=== PATIENT | female | born 1995 | race Two or more races ===

== ENCOUNTER 2017-10-31 08:58 | Day surgery (SDC) | payer BC ==
[~2017-10-31 08:58] MED LIST: Lactated Ringers 1,000 ML IV SCH; Lidocaine 1%/Sod Bicarbonate in NS 8.4% 1 ML Syringe IDERM PRN; Sodium Chloride 0.9% 10 ML Syringe FLUSH PRN
--- NOTE | 2017-10-31 09:25 | PCM.PREANE ---
Preanesthetic Assessment - Procedure Proposed Procedure: D&C - Anesthesia/Transfusion/Family Hx Anesthesia History: No Prior Anesthesia Family History of Anesthesia Reaction: No Transfusion History: No Prior Transfusion(s) - Review of Systems General: No Symptoms Pulmonary: No Symptoms Cardiovascular: No Symptoms Gastrointestinal: No Symptoms Neurological: No Symptoms Other: Reports: None - Physical Assessment NPO Status Date: 10/30/17 NPO Status Time: 00:00 Pulse: 94 O2 Sat by Pulse Oximetry: 96 Respiratory Rate: 16 Blood Pressure: 117/67 Temperature: 36.7 C Height: 1.52 m Weight: 71 kg ASA Class: 2 Mental Status: Alert & Oriented x3 Airway Class: Mallampati = 1 Dentition: Reports: Normal Dentition Thyro-Mental Finger Breadths: 3 Mouth Opening Finger Breadths: 3 ROM/Head Extension: Full Lungs: Clear to Auscultation, Normal Respiratory Effort Cardiovascular: Regular Rate, Regular Rhythm, No Murmurs - Allergies Allergies/Adverse Reactions: Allergies Allergy/AdvReac Type Severity Reaction Status Date / Time No Known Allergies Allergy Verified 10/30/17 14:07 - Blood Blood Available: Yes Product(s) Available: PRBC - Anesthesia Plan Pre-Op Medication Ordered: None - Acknowledgements Anesthesia Type Planned: General Anesthesia Pt an Appropriate Candidate for the Planned Anesthesia: Yes Alternatives and Risks of Anesthesia Discussed w Pt/Guardian: Yes Pt/Guardian Understands and Agrees with Anesthesia Plan: Yes PreAnesthesia Questionnaire HEENT History: Reports: Impaired Vision, Other (See Below) Other HEENT History: wears glasses Cardiovascular History: Reports: None Respiratory History: Reports: None Gastrointestinal History: Reports: None Genitourinary History: Reports: None CLINICAL QUALITY MANAGER History: Reports: , Other (See Below) Other OB/BYN History: pelivc pain, irregular menses Musculoskeletal History: Reports: None Neurological History: Reports: None Psychiatric History: Reports: None Endocrine/Metabolic History: Reports: None Hematologic History: Reports: None Immunologic History: Reports: None Oncologic (Cancer) History: Reports: None Dermatologic History: Reports: None - Past Surgical History Head Surgeries/Procedures: Reports: None Cardiovascular Surgical History: Reports: None Respiratory Surgical History: Reports: None GI Surgical History: Reports: None Female Surgical History: Reports: None Male Surgical History: Reports: None Endocrine Surgical History: Reports: None Neurological Surgical History: Reports: None Musculoskeletal Surgical History: Reports: None Oncologic Surgical History: Reports: None Dermatological Surgical History: Reports: None - SUBSTANCE USE Smoking Status *Q: Never Smoker Tobacco Use Within Last Twelve Months: No Second Hand Smoke Exposure: No Days Per Week of Alcohol Use: 0 Number of Drinks Per Day: 0 Total Drinks Per Week: 0 Recreational Drug Use History: No - HOME MEDS Home Medications: Home Meds Vits #93/Iron Fum/FA [ Formula Tablet] 1 tab PO DAILY 10/30/17 [History] Promethazine HCl [Promethazine HCl] 1 - 2 tab PO Q6H PRN 10/30/17 [History] - CURRENT (IN HOUSE) MEDS Current Meds: Current Medications Doxycycline Hyclate (Vibramycin) 100 mg PO ONETIME ONE Stop: 10/31/17 07:59 Lactated Ringer's (Ringers, Lactated) 1,000 mls @ 125 mls/hr IV ASDIRECTED THEO Stop: 10/31/17 23:00 Lidocaine/Sodium Bicarbonate (Buffered Lidocaine 1% In Ns 8.4%) 0.25 ml IDERM ONETIME PRN PRN Reason: Prior to IV Start Stop: 10/31/17 18:00 Sodium Chloride (Saline Flush) 10 ml FLUSH ASDIRECTED PRN PRN Reason: Keep Vein Open Stop: 10/31/17 18:00
[2017-10-31] MEDS ORDERED: Ondansetron 4 MG/2 ML SDV ONE (09:41)
[2017-10-31] MEDS ORDERED: fentaNYL 250 MCG/5 ML SDV ONE (09:41)
[2017-10-31] MEDS ORDERED: Propofol 200 MG/20 ML SDV ONE (09:41)
[2017-10-31] MEDS ORDERED: Midazolam 1 MG/ML 2 ML SDV ONE (09:41)
[2017-10-31] MEDS ORDERED: Lidocaine 1% 4 ML ONE (09:42)
[2017-10-31] MEDS ORDERED: Ketorolac 30 MG/ML SDV ONE (09:47)
[2017-10-31] MEDS ORDERED: Doxycycline 100 MG Cap PO ONE ×2 (10:00→12:25)
[2017-10-31] MEDS ORDERED: Methylergonovine 0.2 MG/1 ML Amp ONE (10:05)
[2017-10-31] MEDS ORDERED: Lactated Ringers 1,000 ML ONE (10:36)
[2017-10-31] MEDS ORDERED: fentaNYL 100 MCG/2 ML SDV IVPUSH PRN (10:50)
--- NOTE | 2017-10-31 10:53 | PCM.POSTAN ---
POST ANESTHESIA ASSESSMENT - MENTAL STATUS Mental Status: Somnolent - VITAL SIGNS Pulse Rate: 70 SaO2: 100 Resp Rate: 8 Blood Pressure: 109/56 Temperature: 36.8 C - RESPIRATORY Respiratory Status: Respiratory Rate WNL, Airway Patent, O2 Saturation Stable, Supplemental Oxygen - CARDIOVASCULAR CV Status: Pulse Rate WNL, Blood Pressure Stable - GASTROINTESTINAL GI Status: No Symptoms - PAIN Pain Score: 0 - POST OP HYDRATION Hydration Status: Adequate & Stable - OBSERVATIONS Free Text/Narrative:: no anesthesia complications noted
--- NOTE | 2017-10-31 11:06 | PCM.OPNOTE ---
- General Post-Op/Procedure Note Date of Surgery/Procedure: 10/31/17 Operative Procedure(s): Suction dilation and curettage Findings: Single intrauterine gestational sac without pole, overall unchanged from previous exam. No vaginal bleeding on initial exam. Pre Op Diagnosis: Missed at 10 weeks gestational age by LMP with gestational sac measuring 8 weeks Post-Op Diagnosis: Same Anesthesia Technique: General LMA Primary Surgeon: Rob Muñiz Anesthesia Provider: Sam Eaton Sales Agent Pest Control Service: Isai Ring ([place] student) Reason Sales Agent Pest Control Service Was Necessary: Use of ultrasound Role of Sales Agent Pest Control Service: Perform ultrasound during procedure Pathology: Products of conception Fluid Replacement, Intraop: 1,200 Output, Urine Amount: 0 (Voided prior to procedure) EBL in mLs: 225 Complications: None Condition: Good Free Text/Narrative:: Operative time: 9 minutes Procedure in Detail: Patient was counseled on risks, benefits and alternatives of the procedure and H &P and consents were reviewed prior to going back to the OR. She was given 100 mg of doxycycline for antibiotic prophylaxis. She was taken back to the OR and given general anesthesia with laryngeal mask airway that was placed without difficulty. She was placed in dorsal lithotomy position using Bernardo stirrups. She was prepped and draped in a normal sterile fashion. A sterile speculum was placed in the vagina and the cervix was visualized. The anterior lip of the cervix was grasped with an Allis clamp. The cervix was serially dilated to a # 20 Killian dilator. The vacuum was tested and reached an appropriate suction level. A 8 mm suction curettage was then placed into the uterine cavity and suction applied. The uterine cavity was suctioned circumferentially until a good cri was felt in all directions. The tissue that was removed was sent to pathology. The procedure was complete at this time and the tenaculum was removed from the cervix and good hemostasis was noted from the tenaculum sites. All instruments were removed from the vagina. All needle and sponge counts were correct x 2. The patient was awoken and taken back to the recovery room in stable condition. She was given an additional 200 mg of doxycycline PO. She will be discharged home with methergine for uterine tone. The patient will be discharged home when she is ambulating, tolerating PO, pain is well controlled with PO medications and she is voiding normally. She will follow up in the clinic within the next 2- 3 weeks. She was given strict precautions to return if she is having severe vaginal bleeding of more than 1 pad per hour for three hours, uncontrollable pain/nausea /vomiting or if she is having a fever greater than 100.4 Wayne Muñiz MD 10/31/2017 11:22 AM
[2017-10-31] MEDS ORDERED: Acetaminophen 325 MG Tab PO ONE (12:50)
== END 2017-10-31 13:10 | disposition home or self-care (01) ==
LOC: JD.SDS 08:58
PROVIDERS: ATTEND Obstetrics & Gynecology
DX: O02.1 Missed abortion (principal)
CPT/HCPCS: 36415; 59820; 85025; 86850; 86900; 86901; A9270; J1885; J2210; J2250; J2405; J3010; J7120; 00940; J2001; J2704

== ENCOUNTER 2018-04-08 11:04 | Emergency (ER) | payer BC ==
[2018-04-08] MEDS ORDERED: Sodium Chloride 0.9% 10 ML Syringe FLUSH PRN (11:29)
[2018-04-08] MEDS ORDERED: Dicyclomine 10 MG Cap PO ONE (11:31)
--- NOTE | 2018-04-08 11:34 | EDM.PDOC ---
ED HPI GENERAL MEDICAL PROBLEM - General Chief Complaint: Gastrointestinal Problem Stated Complaint: WITH SIDE PAIN Time Seen by Provider: 04/08/18 11:18 Source of Information: Reports: Patient, Family (spouse) History Limitations: Reports: No Limitations - History of Present Illness INITIAL COMMENTS - FREE TEXT/NARRATIVE: 22-year-old female presents to the ED with left upper quadrant or mid abdominal pain. Pain started suddenly yesterday. Since then it is been rather constant with an intermittent strong colicky component. Bowels are working normally. No problems passing her water. No fever or chills. She believes she is with home positive points he tests done 2. Last normal menstrual period around February 27. This would make her 5 weeks and 6 days by dates. 3 para 2 with the last ending in miscarriage at 3 months gestation in October of this year. No previous abdominal surgery. Pain radiates mildly into her back. Appetite has been good although she has not eaten yet today. Onset: Sudden Onset Date: 04/07/18 Onset Time: 10:30 Duration: Hour(s):, Colic, Constant, Other (Pains Are Very Sharp and Stabbing and Radiating across to the Right Abdomen.) Location: Reports: Abdomen (Left mid and lower quadrant of the abdomen.) Quality: Reports: Ache (Deep aching pain with occasional sharp stabbing pain that radiates across to the right abdomen.) Severity: Moderate (7 out of 10 when pain is intense.) Improves with: Reports: Rest Worsens with: Reports: Movement (Bending over seems to make it the worst.) Context: Denies: Activity, Exercise, Lifting, Sick Contact, Trauma, Other Associated Symptoms: Denies: No Other Symptoms, Confusion, Chest Pain, Cough, cough w sputum, Diaphoresis, Fever/Chills, Headaches, Loss of Appetite, Malaise , Nausea/Vomiting, Rash, Seizure, Shortness of Breath, Syncope, Weakness Treatments FERRYBOAT DECKHAND: Reports: Other (see below) (None.) Left Middle Abdomen Pain Score (Numeric/FACES): 8 - Related Data Allergies Allergy/AdvReac Type Severity Reaction Status Date / Time No Known Allergies Allergy Verified 10/30/17 14:07 Home Meds: Home Meds Vits #93/Iron Fum/FA [ Formula Tablet] 1 tab PO DAILY 10/30/17 [History] Acetaminophen [Tylenol] 650 mg PO Q6H PRN #60 tablet 10/31/17 [Rx] Past Medical History HEENT History: Reports: Impaired Vision, Other (See Below) Other HEENT History: wears glasses Cardiovascular History: Reports: None Respiratory History: Reports: None Gastrointestinal History: Reports: None Genitourinary History: Reports: None [facility] History: Reports: , Other (See Below) : 3 Para: 1 (Last ended in miscarriage at 12 weeks gestation. This was in October 2017) Other [facility] History: pelivc pain, irregular menses Musculoskeletal History: Reports: None Neurological History: Reports: None Psychiatric History: Reports: None Endocrine/Metabolic History: Reports: None Hematologic History: Reports: None Immunologic History: Reports: None Oncologic (Cancer) History: Reports: None Dermatologic History: Reports: None - Past Surgical History Head Surgeries/Procedures: Reports: None Cardiovascular Surgical History: Reports: None Respiratory Surgical History: Reports: None GI Surgical History: Reports: None Female Surgical History: Reports: None, D&C Endocrine Surgical History: Reports: None Neurological Surgical History: Reports: None Musculoskeletal Surgical History: Reports: None Oncologic Surgical History: Reports: None Dermatological Surgical History: Reports: None Social & Family History - Tobacco Use Smoking Status *Q: Never Smoker - Caffeine Use Caffeine Use: Reports: Soda - Recreational Drug Use Recreational Drug Use: No - Living Situation & Occupation Living situation: Reports: Occupation: Employed ED ROS GENERAL - Review of Systems Review Of Systems: See Below Constitutional: Reports: Fatigue (Mild). Denies: Fever HEENT: Reports: No Symptoms Respiratory: Reports: No Symptoms Cardiovascular: Reports: No Symptoms Endocrine: Reports: No Symptoms GI/Abdominal: Reports: Abdominal Pain (See history of present illness) : Reports: Other (Trying to achieve . Last period was February 27.) Skin: Reports: No Symptoms Neurological: Reports: No Symptoms Psychiatric: Reports: No Symptoms Hematologic/Lymphatic: Reports: No Symptoms Immunologic: Reports: No Symptoms ED EXAM - Physical Exam Exam: See Below (Trying to achieve . Last period was February 27. Home 2 have been positive.) Exam Limited By: No Limitations General Appearance: Alert, WD/WN, Anxious (Mildly anxious.) Eye Exam: Bilateral Eye: Normal Inspection Throat/Mouth: Normal Inspection, Normal Lips, Normal Oropharynx Head: Atraumatic, Normocephalic Neck: Normal Inspection, Supple, Non-Tender, Full Range of Motion Respiratory/Chest: No Respiratory Distress, Lungs Clear, Normal Breath Sounds, No Accessory Muscle Use Cardiovascular: Normal Peripheral Pulses, Regular Rate, Rhythm, No Gallop, No Murmur GI/Abdominal Exam: Soft, Non-Tender, No Organomegaly, No Abnormal Bruit, No Mass , Pelvis Stable, Abnormal Bowel Sounds (Very active bowel sounds in all 4 quadrants.) Back Exam: Normal Inspection, Full Range of Motion. No: CVA Tenderness (L), CVA Tenderness (R) Extremities: Normal Inspection, Normal Range of Motion, Non-Tender, No Pedal Edema Neurological: Alert, Oriented, CN II-XII Intact, Normal Cognition Psychiatric: Normal Affect, Normal Mood Skin Exam: Warm, Dry, Intact, Normal Color, No Rash Course - Vital Signs Last Recorded V/S: Last Vital Signs Temp 36.7 C 04/08/18 11:17 Pulse 80 04/08/18 11:17 Resp 20 04/08/18 11:17 BP 129/82 04/08/18 11:17 Pulse Ox 99 04/08/18 11:17 - Orders/Labs/Meds Orders: Active Orders 24 hr Category Date Time Status Peripheral IV Care [RC] . DIRECTED Care 04/08/18 11:29 Active UA W/MICROSCOPIC [URIN] Stat Lab 04/08/18 11:58 Ordered Sodium Chloride 0.9% [Saline Flush] Med 04/08/18 11:29 Active 10 ml FLUSH ASDIRECTED PRN Peripheral IV Insertion Adult [OM.PC] Stat Oth 04/08/18 11:29 Ordered Medication Orders Sodium Chloride (Saline Flush) 10 ml FLUSH ASDIRECTED PRN PRN Reason: Keep Vein Open Last Admin: 04/08/18 11:39 Dose: 10 ml Labs: Laboratory Tests 04/08/18 04/08/18 04/08/18 Range/Units 11:35 11:35 11:35 WBC 7.91 (3.98-10.04) K/mm3 RBC 4.97 (3.98-5.22) M/mm3 Hgb 13.9 (11.2-15.7) gm/L Hct 41.3 (34.1-44.9) % MCV 83.1 (79.4-94.8) fl MCH 28.0 (25.6-32.2) pg MCHC 33.7 (32.2-35.5) g/dl RDW Std Deviation 40.3 (36.4-46.3) fL Plt Count 329 (182-369) K/mm3 MPV 10.4 (9.4-12.3) fl Neutrophils % (Manual) 62 H (40-60) % Band Neutrophils % 0 (0-10) % Lymphocytes % (Manual) 32 (20-40) % Atypical Lymphs % 0 % Monocytes % (Manual) 4 (2-10) % Eosinophils % (Manual) 2 (0.7-5.8) % Basophils % (Manual) 0 L (0.1-1.2) Platelet Estimate Adequate RBC Morph Comment Normal Sodium 139 (136-145) mEq/L Potassium 3.6 (3.5-5.1) mEq/L Chloride 104 (98-107) mEq/L Carbon Dioxide 25 (21-32) mEq/L Anion Gap 13.6 (5-15) BUN 8 (7-18) mg/dL Creatinine 0.7 (0.55-1.02) mg/dL Est Cr Clr Drug Dosing 90.55 mL/min Estimated GFR (MDRD) > 60 (>60) mL/min BUN/Creatinine Ratio 11.4 L (14-18) Glucose 86 (74-106) mg/dL Calcium 8.5 (8.5-10.1) mg/dL Total Bilirubin 0.6 (0.2-1.0) mg/dL AST 14 L (15-37) U/L ALT 28 (14-59) U/L Alkaline Phosphatase 57 (46-116) U/L Total Protein 7.1 (6.4-8.2) g/dl Albumin 3.8 (3.4-5.0) g/dl Globulin 3.3 gm/dL Albumin/Globulin Ratio 1.2 (1-2) HCG, Qual Positive H (NEGATIVE) HCG, Quant 1907.0 mIU/mL Urine Color (Yellow) Urine Appearance (Clear) Urine pH (5.0-8.0) Ur Specific [place] (1.005-1.030) Urine Protein (Negative) Urine Glucose (UA) (Negative) Urine Ketones (Negative) Urine Occult Blood (Negative) Urine Nitrite (Negative) Urine Bilirubin (Negative) Urine Urobilinogen (0.2-1.0) Ur Leukocyte Esterase (Negative) Urine RBC (0-5) /hpf Urine WBC (0-5) /hpf Ur Epithelial Cells (0-5) /hpf Urine Bacteria (FEW) /hpf Urine Mucus (FEW) /hpf Blood Type Gel Antibody Screen 04/08/18 04/08/18 Range/Units 11:35 11:58 WBC (3.98-10.04) K/mm3 RBC (3.98-5.22) M/mm3 Hgb (11.2-15.7) gm/L Hct (34.1-44.9) % MCV (79.4-94.8) fl MCH (25.6-32.2) pg MCHC (32.2-35.5) g/dl RDW Std Deviation (36.4-46.3) fL Plt Count (182-369) K/mm3 MPV (9.4-12.3) fl Neutrophils % (Manual) (40-60) % Band Neutrophils % (0-10) % Lymphocytes % (Manual) (20-40) % Atypical Lymphs % % Monocytes % (Manual) (2-10) % Eosinophils % (Manual) (0.7-5.8) % Basophils % (Manual) (0.1-1.2) Platelet Estimate RBC Morph Comment Sodium (136-145) mEq/L Potassium (3.5-5.1) mEq/L Chloride (98-107) mEq/L Carbon Dioxide (21-32) mEq/L Anion Gap (5-15) BUN (7-18) mg/dL Creatinine (0.55-1.02) mg/dL Est Cr Clr Drug Dosing mL/min Estimated GFR (MDRD) (>60) mL/min BUN/Creatinine Ratio (14-18) Glucose (74-106) mg/dL Calcium (8.5-10.1) mg/dL Total Bilirubin (0.2-1.0) mg/dL AST (15-37) U/L ALT (14-59) U/L Alkaline Phosphatase (46-116) U/L Total Protein (6.4-8.2) g/dl Albumin (3.4-5.0) g/dl Globulin gm/dL Albumin/Globulin Ratio (1-2) HCG, Qual (NEGATIVE) HCG, Quant mIU/mL Urine Color Yellow (Yellow) Urine Appearance Slt cloudy H (Clear) Urine pH 6.0 (5.0-8.0) Ur Specific [place] > or = 1.030 (1.005-1.030) Urine Protein Negative (Negative) Urine Glucose (UA) Negative (Negative) Urine Ketones Negative (Negative) Urine Occult Blood Trace-intact H (Negative) Urine Nitrite Negative (Negative) Urine Bilirubin Negative (Negative) Urine Urobilinogen 0.2 (0.2-1.0) Ur Leukocyte Esterase Negative (Negative) Urine RBC 0-5 (0-5) /hpf Urine WBC 0-5 (0-5) /hpf Ur Epithelial Cells 0-5 (0-5) /hpf Urine Bacteria Few (FEW) /hpf Urine Mucus Many H (FEW) /hpf Blood Type O POSITIVE Gel Antibody Screen Negative Meds: Medications Generic Name Dose Route Start Last Admin Trade Name Freq PRN Reason Stop Dose Admin Sodium Chloride 10 ml 04/08/18 11:29 04/08/18 11:39 Saline Flush FLUSH 10 ml ASDIRECTED PRN Administration Keep Vein Open Discontinued Medications Generic Name Dose Route Start Last Admin Trade Name Freq PRN Reason Stop Dose Admin Dicyclomine HCl 20 mg 04/08/18 11:31 04/08/18 11:39 Bentyl PO 04/08/18 11:32 20 mg ONETIME ONE Administration - Radiology Interpretation Free Text/Narrative:: 22-year-old female who is 3 para 1 by history. Currently with last menstrual period around February 27. She's been trying to conceive. Last ended in miscarriage in October of this year. She states that yesterday morning about 10:30 she developed left-sided lower abdominal pain that seems to radiate up towards the left mid abdomen. Pain is progressively worsened in terms of its a more constant. It is intermittently strongly colicky and radiates across the abdomen to the right side. Bowel function has been normal afebrile. Denies any spotting per vagina. By dates she would be 5 weeks 6 days. Examination reveals very active bowel sounds in all 4 quadrants. No localized tenderness or peritoneal signs. I suspect clinically that her pain is actually intestinal colic likely due to constipation. Patient is quite adamant however that we do an ultrasound if possible. He will be ordered to confirm that we have an intrauterine . At this time I feel it's unlikely that she has a ruptured ectopic with no peritoneal signs. Her hCG both quantitative and qualitative will be done. Routine labs ordered. Peripheral IV lock only at this time. Transvaginal ultrasound ordered - Re-Assessments/Exams Free Text/Narrative Re-Assessment/Exam: 04/08/18 12:44 Labs are back showing a normal white count at 7.91. Differential 62% neutrophils no bands. Hemoglobin is 13.9 with hematocrit of 41.3. Platelet count normal 329,000. Sodium is 139 with a potassium of 3.6. Chloride is 104 the bicarbonate 25. Anion gap is normal at 13.6. BUN is 8 with a creatinine of 0.7. Glucose is 86. Calcium is 8.5.. Total bilirubin is 0.6. AST is 14 with an ALT of 28. Alk phosphatase is 57. ECG is positive and the quantitative beta hCG is 1907. This would correlate with a 2-3 week gestational . 04/08/18 13:44 transvaginal ultrasound reveals a small gestational sac in the uterus. It is 0.41 cm which correlates with 5 weeks gestation. 2 early to see a heartbeat. No pole or yolk sac is yet seen. There is a small amount of fluid within the cul-de-sac without ovarian or adnexal abnormalities being noted. Fluid may be from a ruptured corpus luteum cyst. She's feeling much improved with no further pain after the Bentyl has relieved her abdominal cramping pain. I still believe her pain is that of intestinal colic secondary to constipation. I'm going to give her 6 ounces of Citroma by mouth to help provide bowel cleanse. Suggest a follow-up with [facility] in 3 weeks' time. Sooner if any further problems develop such as bleeding per vagina etc. Departure - Departure Time of Disposition: 13:47 Disposition: Home, Self-Care 01 Condition: Fair Clinical Impression: First trimester , Abdominal pain affecting - Discharge Information *PRESCRIPTION DRUG MONITORING PROGRAM REVIEWED*: Not Applicable *COPY OF PRESCRIPTION DRUG MONITORING REPORT IN PATIENT INDU: Not Applicable Referrals: Rob Muñiz MD [Primary Care Provider] - Forms: ED Department Discharge Additional Instructions: Evaluation the emergency room today in regards to left upper mid abdominal pain which is constant with a strong intermittent sharp stabbing or colicky component. On examination he had very active bowel sounds throughout the abdomen compatible with a small bowel working very hard to push something along. The suction is that you likely have a bit of constipation the left upper : That is causing her current abdominal pain. Coincidentally noted to be with home test 2. Last normal menstrual period is February 27. A transvaginal ultrasound correlates with a 5 week gestation. Not able to see a yolk sac or pole or of course a heartbeat at this time it is too early. Lab tests also correlates with this age of . Suggest follow-up with OB/ [employer]2B SALES REPRESENTATIVE in about 3 weeks' time for first visit. If you develop any problems such as bleeding or spotting per vagina. My suggestion for treatment is Citroma 6 ounces by mouth mixed with juice of choice 4-5 ounces. This will start to work in 1-2 hours and her bowels will move to to 3 times and should alleviate your abdominal pain completely. Can drink as per normal. - My Orders Last 24 Hours: My Active Orders 04/08/18 11:29 Peripheral IV Care [RC] . DIRECTED Sodium Chloride 0.9% [Saline Flush] 10 ml FLUSH ASDIRECTED PRN Peripheral IV Insertion Adult [OM.PC] Stat 04/08/18 11:58 UA W/MICROSCOPIC [URIN] Stat - Assessment/Plan Last 24 Hours: My Active Orders 04/08/18 11:29 Peripheral IV Care [RC] . DIRECTED Sodium Chloride 0.9% [Saline Flush] 10 ml FLUSH ASDIRECTED PRN Peripheral IV Insertion Adult [OM.PC] Stat 04/08/18 11:58 UA W/MICROSCOPIC [URIN] Stat
--- NOTE | 2018-04-08 13:35 | US ---
First trimester obstetrical ultrasound: Multiple real-time images were obtained transabdominally of the left lower abdomen as well as transvaginal images of the pelvis. Comparison: No previous study for current . Small gestational sac is seen. Small amount of fluid is seen within the cul-de-sac. Small gestational sac is seen. No pole or yolk sac seen. Follicles noted within both ovaries. No larger cyst or solid finding is seen. No adnexal abnormalities are definitely appreciated. Measurements: Gestational sac: 0.41 cm - 5 weeks 0 days Impression: 1. Small gestational sac. No pole or yolk sac is seen at this time most likely relating to early age of . Follow-up study could be considered in 11 days to confirm normal developing . 2. Small amount of fluid within the cul-de-sac without ovarian or adnexal abnormality being seen. Fluid may relate to ruptured corpus luteum cyst. Diagnostic code #2
[2018-04-08] MEDS ORDERED: Magnesium Citrate Solution 296 ML Bottle PO ONE (13:46)
== END 2018-04-08 14:10 | disposition home or self-care (01) ==
LOC: JD.ED 11:04
DX: O99.89 Other specified diseases and conditions complicating pregnancy, childbirth and the puerperium (principal); R10.12 Left upper quadrant pain; R10.32 Left lower quadrant pain; Z3A.01 Less than 8 weeks gestation of pregnancy
CPT/HCPCS: 36415; 76817; 80053; 81001; 84702; 84703; 85007; 85027; 86850; 86900; 86901; 99284; A9270; J7050; 99283